=== PATIENT | female | born 1995 | race African-American/Black ===

== ENCOUNTER 2018-12-30 17:49 | Inpatient (IN) ==
[2018-12-30 18:34] LABS: Appearance Urine Clear (Clear); Bilirubin Urine Negative (Negative); Color Urine Yellow; Glucose Urine UA Negative (Negative); Ketones Urine Negative (Negative); Leukocyte Esterase Urine Negative (Negative); Nitrite Urine Negative (Negative); Protein Urine Negative (Negative); Specific Gravity Urine 1.023 (1.000-1.030); Urobilinogen Urine Negative (Negative); pH Urine 5.5 (4.5-7.5)
[2018-12-30 18:40] LABS: Basophils # (auto) 0.04 K/uL (0-0.2); Basophils % (auto) 0.5 %; Eosinophils # (auto) 0.08 K/uL (0-0.5); Hematocrit (blood only) 40.4 % (37-47); Hemoglobin 14.1 g/dL (12.0-16.0); Lymphocytes # (auto) 2.65 K/uL (1.2-3.4); Lymphocytes % (auto) 32.4 %; Mean Corpuscular Hgb Conc 34.9 g/dL (32-36); Mean Platelet Volume 9.1 fL (7.4-10.4); Monocytes # (auto) 0.52 K/uL (0.11-0.59); Monocytes % (auto) 6.4 %; Neutrophils # (auto) 4.89 K/uL (1.4-6.5); Neutrophils % (auto) 59.7 %; Platelet Count 284 K/uL (130-400); RDW Coefficient of Variation 12.7 % (11.5-14.5); RDW Standard Deviation 41.2 fL (36.4-46.3); Red Blood Count 4.54 M/uL (4.2-5.4); White Blood Count 8.18 K/uL (4.8-10.8)
[2018-12-30 19:03] LABS: BUN Creatinine Ratio 8.8 (10-20); Bilirubin,Total 0.4 mg/dl (0.2-1); Calcium 8.7 mg/dl (8.5-10.1); Creatinine Clr Calc Pharmacy 93.1 ml/min; Est GFR (African American) 116.8; Est GFR (Non-African American) 100.8; Globulin 3.9 gm/dl (2.5-4.0); Potassium 3.5 mmol/L (3.5-5.1); Total Protein 7.9 gm/dl (6.4-8.2)
[2018-12-30 19:05] LABS: Acetaminophen < 2 ug/ml (10-30); Salicylate < 1.7 mg/dl (2.8-20)
[2018-12-30 19:22] LABS: Amphetamines+Metham, Urine Neg (Neg); Barbiturates, Urine Neg (Neg); Benzodiazepine, Urine Neg (Neg); Cocaine, Urine Neg (Neg); MDMA (Ecstacy), Urine Neg (Neg); Methadone, Urine Neg (Neg); Opiate, Urine Neg (Neg); Phencyclidine, Urine Neg (Neg)
[2018-12-30 19:47] LABS: Pregnancy Test, Urine Negative (Negative)
--- NOTE | 2018-12-30 21:10 | Emergency Department Note ---
Entered by Letitia Cisneros acting as a scribe for Stevie Rhoades DO History of Present Illness General Chief complaint: Mental Health Evaluation Stated complaint: SAD Source: patient History of Present Illness Onset (ago): hour(s) (today) Location: head, upper extremity and lower extremity Pain Consistency: + other (suddenly) Quality: + other (depressed, thoughts of wanting to kill herself) Associated symptoms: + other (Positive thoughts of SI (overdosing on omeprazole or cutting her wristis). Negative hearing any voices or seeing anything that is not there) The patient is a 23 year old female who presents to the Emergency Room for a mental health evaluation. She states she has a hx of depression and anxiety. Today, she notes she tried doing the therapies her counselor had told her about however, they did not work and she states she wanted to kill herself. She reports she had her omeprazole pills in her hand and thought of overdosing on them but did not take them. She states she also had a razor nearby and she thought about cutting her wrists. Pt denies hearing any voices or seeing anything that is not there. Her LNMP was last month. Home Medications Home Medications Medication Instructions Recorded Confirmed Type No Known Home Medications 12/30/18 12/30/18 History Allergies Allergy/AdvReac Type Severity Reaction Status Date / Time cefprozil [From Cefzil] Allergy Rash Verified 12/30/18 18:19 fruit Allergy Hives Uncoded 12/30/18 18:19 Past Med/Surg History Medical History Anxiety (Chronic) Depression (Chronic) Family History Other Family history non-contributory Social History current occupational status: student Feels Safe at Home: Yes Smoking Status: Never smoker Beliefs That Will Affect Care: None Preferred Language: Citizen Of [place] Communication Ability: Effective Review of Systems See HPI for pertinent positives & negatives. and A total of 10 systems reviewed and were otherwise negative Physical Exam Vital Signs Vital Signs - 24 hr 12/30/18 18:00 12/30/18 19:49 12/30/18 21:46 Temperature 37.2 C Temperature Source Oral Sepsis Recent Fever Within 48 Hours No Sepsis New/Unexplained Change in Mental Status No Sepsis Action Taken by Nursing No Action Required Pulse Rate 86 Pulse Rate [Right Finger] 57 L 60 Pulse Rhythm Regular Pulse Rhythm [Right Finger] Regular Regular Pulse Strength Normal Pulse Strength [Right Finger] Normal Normal Respiratory Rate 18 18 18 Respiratory Effort / Characteristics Non-Labored Non-Labored Spontaneous Non-Labored Spontaneous Respiratory Depth Normal Normal Normal Respiratory Pattern Regular Regular Regular Blood Pressure 115/72 Blood Pressure [Right Arm] 110/64 108/65 Blood Pressure Mean 86 Blood Pressure Mean [Right Arm] 79 79 Blood Pressure Position Lying Blood Pressure Position [Right Arm] Lying Lying Pulse Oximetry 95 100 100 Oxygen Delivery Method Room Air Room Air Room Air 12/30/18 21:48 12/30/18 22:25 12/30/18 22:37 Temperature 36.5 C Temperature Source Oral Sepsis Recent Fever Within 48 Hours Sepsis New/Unexplained Change in Mental Status Sepsis Action Taken by Nursing Pulse Rate Pulse Rate [Right Finger] 62 Pulse Rhythm Pulse Rhythm [Right Finger] Regular Pulse Strength Pulse Strength [Right Finger] Normal Respiratory Rate 18 Respiratory Effort / Characteristics Non-Labored Spontaneous Non-Labored Respiratory Depth Normal Normal Respiratory Pattern Regular Regular Blood Pressure Blood Pressure [Right Arm] 108/74 Blood Pressure Mean Blood Pressure Mean [Right Arm] 85 Blood Pressure Position Blood Pressure Position [Right Arm] Standing Pulse Oximetry 98 Oxygen Delivery Method Room Air Room Air GENERAL: Sitting up in bed, alert, well appearing, well nourished, no distress, non-toxic EYE EXAM: normal conjunctiva. OROPHARYNX: no exudate, no erythema, lips, buccal mucosa, and tongue normal and mucous membranes are moist NECK: supple, no nuchal rigidity, no adenopathy, non-tender LUNGS: Clear to auscultation. Normal chest wall mechanics HEART: no murmurs, S1 normal and S2 normal ABDOMEN: abdomen soft, non-tender, normo-active bowel, sounds, no masses, no rebound or guarding. BACK: Back is symmetrical on inspection and there is no deformity, no midline tenderness, no CVA tenderness. SKIN: no rashes and no bruising UPPER EXTREMITIES: upper extremities are grossly normal. LOWER EXTREMITIES: No pitting edema. NEURO EXAM: Normal sensorium, cranial nerves II-XII grossly intact, normal speech, no gross weakness of arms, no gross weakness of legs. PSYCH: Admits to suicidal thoughts by overdosing or cutting her wrists. Course ED COURSE: Vital signs were reviewed and showed normotensive The patients medical record was reviewed The above diagnostic studies were performed and reviewed. ED treatments and interventions as stated above. 1756: The patient was evaluated in room A8. A complete history and physical examination was performed. 2109: I reviewed the patient's case with [facility]. They will evaluate the patient for further management. 2114: Upon reevaluation, the patient is feeling slightly better. I discussed my findings with the patient and she understands and agrees with the treatment plan. Based on the patients age, coexisting illnesses, exam and lab findings the decision to treat as an inpatient was made. The patient remained stable while under my care. The patient will be evaluated for further management. Consultations Consultation #1: I reviewed the patient's case with [facility]. They will evaluate the patient for further management. Time: 21:10 Medical Decision Making Differential Diagnosis Differential diagnoses considered include mood disorder, infection, hypoglycemia , electrolyte abnormalities, cardiac sources, intracerebral event, toxicologic, neurologic, as well as others. Medical Records Attestation: I reviewed the patient's medical records. Home Medications Current Medication List: was personally reviewed by me Laboratory Data Attestation: I reviewed the patient's lab results. Result diagrams: 12/30/18 18:22 12/30/18 18:22 Lab Results 12/30/18 12/30/18 12/30/18 Range/Units 18:08 18:08 18:08 WBC (4.8-10.8) K/uL RBC (4.2-5.4) M/uL Hgb (12.0-16.0) g/dL Hct (37-47) % MCV (80-100) fL MCH (25-34) pg MCHC (32-36) g/dL RDW Std Deviation (36.4-46.3) fL RDW Coeff of Griselda (11.5-14.5) % Plt Count (130-400) K/uL MPV (7.4-10.4) fL Immature Gran % (Auto) % Neut % (Auto) % Lymph % (Auto) % Luna % (Auto) % Eos % (Auto) % Baso % (Auto) % Immature Gran # (Auto) (0.00-0.02) K/uL Neut # (Auto) (1.4-6.5) K/uL Lymph # (Auto) (1.2-3.4) K/uL Luna # (Auto) (0.11-0.59) K/uL Eos # (Auto) (0-0.5) K/uL Baso # (Auto) (0-0.2) K/uL Sodium (136-145) mmol/L Potassium (3.5-5.1) mmol/L Chloride (98-107) mmol/L Carbon Dioxide (21-32) mmol/L Anion Gap (3-11) BUN (7-18) mg/dl Creatinine (0.6-1.2) mg/dl Est Cr Clr Drug Dosing ml/min Est GFR ( Amer) Est GFR (Non-Af Amer) BUN/Creatinine Ratio (10-20) Glucose (70-99) mg/dl Calcium (8.5-10.1) mg/dl Total Bilirubin (0.2-1) mg/dl AST (15-37) U/L ALT (12-78) U/L Alkaline Phosphatase (45-117) U/L Total Protein (6.4-8.2) gm/dl Albumin (3.4-5.0) gm/dl Globulin (2.5-4.0) gm/dl Albumin/Globulin Ratio (0.9-2) TSH (0.300-4.500) uIu/ml Urine Color Yellow Urine Appearance Clear (Clear) Urine pH 5.5 (4.5-7.5) Ur Specific [place] 1.023 (1.000-1.030) Urine Protein Negative (Negative) Urine Glucose (UA) Negative (Negative) Urine Ketones Negative (Negative) Urine Blood Negative (Negative) Urine Nitrite Negative (Negative) Urine Bilirubin Negative (Negative) Urine Urobilinogen Negative (Negative) Ur Leukocyte Esterase Negative (Negative) Urine Test Negative (Negative) Salicylates (2.8-20) mg/dl Urine Opiates Screen Neg (Neg) Ur Methadone, Qual Neg (Neg) Acetaminophen (10-30) ug/ml Urine Barbiturates Neg (Neg) Ur Phencyclidine (PCP) Neg (Neg) U Amphetamin/Meth Scrn Neg (Neg) MDMA (Ecstasy) Screen Neg (Neg) U Benzodiazepines Scrn Neg (Neg) Ur Cocaine Metabolite Neg (Neg) U Marijuana (THC) Screen Neg (Neg) Ethyl Alcohol mg/dL (0-3) mg/dl 12/30/18 12/30/18 12/30/18 Range/Units 18:22 18:22 18:22 WBC 8.18 (4.8-10.8) K/uL RBC 4.54 (4.2-5.4) M/uL Hgb 14.1 (12.0-16.0) g/dL Hct 40.4 (37-47) % MCV 89.0 (80-100) fL MCH 31.1 (25-34) pg MCHC 34.9 (32-36) g/dL RDW Std Deviation 41.2 (36.4-46.3) fL RDW Coeff of Griselda 12.7 (11.5-14.5) % Plt Count 284 (130-400) K/uL MPV 9.1 (7.4-10.4) fL Immature Gran % (Auto) 0.0 % Neut % (Auto) 59.7 % Lymph % (Auto) 32.4 % Luna % (Auto) 6.4 % Eos % (Auto) 1.0 % Baso % (Auto) 0.5 % Immature Gran # (Auto) 0.00 (0.00-0.02) K/uL Neut # (Auto) 4.89 (1.4-6.5) K/uL Lymph # (Auto) 2.65 (1.2-3.4) K/uL Luna # (Auto) 0.52 (0.11-0.59) K/uL Eos # (Auto) 0.08 (0-0.5) K/uL Baso # (Auto) 0.04 (0-0.2) K/uL Sodium 138 (136-145) mmol/L Potassium 3.5 (3.5-5.1) mmol/L Chloride 107 (98-107) mmol/L Carbon Dioxide 24 (21-32) mmol/L Anion Gap 7.0 (3-11) BUN 7 (7-18) mg/dl Creatinine 0.83 (0.6-1.2) mg/dl Est Cr Clr Drug Dosing 93.1 ml/min Est GFR ( Amer) 116.8 Est GFR (Non-Af Amer) 100.8 BUN/Creatinine Ratio 8.8 L (10-20) Glucose 101 H (70-99) mg/dl Calcium 8.7 (8.5-10.1) mg/dl Total Bilirubin 0.4 (0.2-1) mg/dl AST 15 (15-37) U/L ALT 19 (12-78) U/L Alkaline Phosphatase 80 (45-117) U/L Total Protein 7.9 (6.4-8.2) gm/dl Albumin 4.0 (3.4-5.0) gm/dl Globulin 3.9 (2.5-4.0) gm/dl Albumin/Globulin Ratio 1.0 (0.9-2) TSH 0.570 (0.300-4.500) uIu/ml Urine Color Urine Appearance (Clear) Urine pH (4.5-7.5) Ur Specific [place] (1.000-1.030) Urine Protein (Negative) Urine Glucose (UA) (Negative) Urine Ketones (Negative) Urine Blood (Negative) Urine Nitrite (Negative) Urine Bilirubin (Negative) Urine Urobilinogen (Negative) Ur Leukocyte Esterase (Negative) Urine Test (Negative) Salicylates < 1.7 L (2.8-20) mg/dl Urine Opiates Screen (Neg) Ur Methadone, Qual (Neg) Acetaminophen < 2 L (10-30) ug/ml Urine Barbiturates (Neg) Ur Phencyclidine (PCP) (Neg) U Amphetamin/Meth Scrn (Neg) MDMA (Ecstasy) Screen (Neg) U Benzodiazepines Scrn (Neg) Ur Cocaine Metabolite (Neg) U Marijuana (THC) Screen (Neg) Ethyl Alcohol mg/dL (0-3) mg/dl 12/30/18 Range/Units 18:22 WBC (4.8-10.8) K/uL RBC (4.2-5.4) M/uL Hgb (12.0-16.0) g/dL Hct (37-47) % MCV (80-100) fL MCH (25-34) pg MCHC (32-36) g/dL RDW Std Deviation (36.4-46.3) fL RDW Coeff of Griselda (11.5-14.5) % Plt Count (130-400) K/uL MPV (7.4-10.4) fL Immature Gran % (Auto) % Neut % (Auto) % Lymph % (Auto) % Luna % (Auto) % Eos % (Auto) % Baso % (Auto) % Immature Gran # (Auto) (0.00-0.02) K/uL Neut # (Auto) (1.4-6.5) K/uL Lymph # (Auto) (1.2-3.4) K/uL Luna # (Auto) (0.11-0.59) K/uL Eos # (Auto) (0-0.5) K/uL Baso # (Auto) (0-0.2) K/uL Sodium (136-145) mmol/L Potassium (3.5-5.1) mmol/L Chloride (98-107) mmol/L Carbon Dioxide (21-32) mmol/L Anion Gap (3-11) BUN (7-18) mg/dl Creatinine (0.6-1.2) mg/dl Est Cr Clr Drug Dosing ml/min Est GFR ( Amer) Est GFR (Non-Af Amer) BUN/Creatinine Ratio (10-20) Glucose (70-99) mg/dl Calcium (8.5-10.1) mg/dl Total Bilirubin (0.2-1) mg/dl AST (15-37) U/L ALT (12-78) U/L Alkaline Phosphatase (45-117) U/L Total Protein (6.4-8.2) gm/dl Albumin (3.4-5.0) gm/dl Globulin (2.5-4.0) gm/dl Albumin/Globulin Ratio (0.9-2) TSH (0.300-4.500) uIu/ml Urine Color Urine Appearance (Clear) Urine pH (4.5-7.5) Ur Specific [place] (1.000-1.030) Urine Protein (Negative) Urine Glucose (UA) (Negative) Urine Ketones (Negative) Urine Blood (Negative) Urine Nitrite (Negative) Urine Bilirubin (Negative) Urine Urobilinogen (Negative) Ur Leukocyte Esterase (Negative) Urine Test (Negative) Salicylates (2.8-20) mg/dl Urine Opiates Screen (Neg) Ur Methadone, Qual (Neg) Acetaminophen (10-30) ug/ml Urine Barbiturates (Neg) Ur Phencyclidine (PCP) (Neg) U Amphetamin/Meth Scrn (Neg) MDMA (Ecstasy) Screen (Neg) U Benzodiazepines Scrn (Neg) Ur Cocaine Metabolite (Neg) U Marijuana (THC) Screen (Neg) Ethyl Alcohol mg/dL < 3.0 (0-3) mg/dl Blood Pressure Blood Pressure Findings: Normal blood pressure Blood Pressure Disposition: did not require urgent referral MDM Narrative Patient is a 23-year-old female who presents the ER for thoughts of self-harm. She notes that she has been depressed recently and this has been worsening. She takes no medications. She notes that tonight she was thinking about overdosing on medications and cutting her wrist. Patient has no physical complaints at this time. Labs were obtained and showed no significant leukocytosis or anemia. BMP along with LFTs bilirubin and TSH was unremarkable. Urine was negative. Salicylates and acetaminophen were negative. Alcohol was negative. Patient was updated bedside. Patient was accepted to [facility] [address] and admitted on 201. Impression & Plan Mood disorder, Suicidal thoughts Discharge Plan Visit Data *Final* Discharge Date/Time: 12/30/18 21:48 Chief Complaint: Mental Health Evaluation Stated Complaint: SAD ED Provider: Stevie Rhoades Discharge Problem: Mood disorder, Suicidal thoughts Patient Disposition: Admitted As Inpatient Discharge Instructions Interventions: ED Discharge Assessment Last Done: 12/30/18 21:48 The scribe's documentation has been prepared under my direction and personally reviewed by me in its entirety. I confirm that the note above accurately reflects all work, treatment, procedures, and medical decision making performed by me.
[2018-12-30] MEDS ORDERED: MAGNESIUM HYDROXIDE SUSP 30 ML UDC PO PRN (22:24)
[2018-12-30] MEDS ORDERED: ACETAMINOPHEN 325 MG TAB PO PRN (22:24)
[2018-12-30] MEDS ORDERED: BISMUTH SUBSALICYLATE PER ML OMNICELL CHARGE PO PRN (22:24)
[2018-12-30] MEDS ORDERED: ALUMINUM/MAGNESIUM SUSP 30 ML UDC PO PRN (22:24)
[2018-12-30] MEDS ORDERED: SODIUM CHLORIDE 0.65% NA SOLN 45 ML (OCEAN) PRN (22:24)
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
[2018-12-31] MEDS ORDERED: SERTRALINE HCL 50 MG TABLET PO ONE (12:00)
[2019-01-01] MEDS: SERTRALINE HCL 50 MG TABLET PO SCH (09:03)
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
[2019-01-02] MEDS: SERTRALINE HCL 50 MG TABLET PO SCH (07:49)
--- NOTE | 2019-01-02 09:05 | Psychiatric Progress Note ---
Date of Service January 02, 2019 Impression / Recommendations Impression Tolerating zoloft and so will increase to 100 mg to target mood and anxiety. Will work toward firming up aftercare plans and contact Office of Student Care and Advocacy. If progress continues, could consider discharge as soon as tomorrow. (1) Depression: 12/31 - Start Zoloft 25 mg today increasing to 50 mg tomorrow - Q 15 min checks for safety - Encourage participation in group and individual counseling - Assist the patient to explore healthy coping strategies - Coordinate with therapist at [facility] - The patient will need a psychiatric prescriber - FAmily meeting - Contact Office of Student Affairs as needed 01/01 -Continue sertraline and increase to 50 mg daily. -Family meeting with mother -Refer for outpatient psychiatry and therapy. 01/02 - Increase Zoloft to 100 mg qAM - Confirm aftercare Inventory Assets Strengths: Desire to do well in life, willingness to engage in treatment, supportive mother Needs: Healthy coping strategies, and outpatient care Risk Factors Assessment Male: No : No Do You Have Access To A Gun?: No Health Problems: No Mental Health Diagnoses: No Substance Use Disorders: No Previous Attempt: No Family History of Suicide: No Previous Psychiatric Hospitalization: No Hopelessness: Yes Smoker: No Protective Factors Assessment : No Responsible for Young Children: No Employed: Yes Stable Relationships: No Supportive Family: No Interval History Identifying Information INDRA SIERRA is 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 She is admitted voluntarily. Chief Complaint "I'm good today.". Review of Systems Sleep Information Total Hours of Sleep: 6.5 Sleep Comments: pt on q-15 minute checks Meal Information Percent Meal Consumed - Breakfast: 100 Percent Meal Consumed - Lunch: 70 Percent Meal Consumed - Dinner: 10 Subjective Subjective Patient was seen & assessed and interval progress reviewed with Treatment Team. Today the patient says that she is feeling better. She says that she is "learning to let go" of toxic issues and people in her life. Last evening she called her ex BF and told him she no longer wanted even to have phone conversation which he was OK with. She also plans to block her father's number from her phone so that she has no contact with him since its clear to her that he doesn't care about her. She has many friends and supports that she considers to be healthy, including her roommates and her sorority sisters. She denies any further SI saying "I can't believe I thought that" and knows now that she would never want to end her life. She denies side effects to medications. Anxiety remains and today is trying to put in place better sleep hygiene, with same wake up and bed times. Physical Exam Psychiatric Orientation: alert and cooperative Apperance: appropriately dressed and appropriately groomed Eye Contact: good eye contact Motor Behavior: steady gait and station and no abnormal motor movements Speech: normal rate/rhythm/volume of speech Affect: + anxious affect Mood: + anxious mood Thought Process: goal directed thought process Thought Content: reality based without delusions Suicidal Thoughts: denies suicidal thoughts Homicidal Thoughts: denies homicidal thoughts Hallucinations: no auditory hallucinations and no visual hallucinations Cognition: recent memory grossly intact, remote memory grossly intact, attention grossly intact and language grossly intact Estimated Intelligence: average estimated intelligence Insight: + fair insight Judgement: + fair judgement Vital Signs (Past 24 Hours) Last Vital Signs Temp 36.6 C 01/02/19 06:33 Pulse 78 01/02/19 06:34 Resp 16 01/02/19 06:33 BP 104/64 01/02/19 06:34 Pulse Ox 98 12/30/18 22:37 Results & Data Current Inpatient Medications Current Inpatient Medications: Current Inpatient Medications Acetaminophen (Tylenol) 650 mg PO Q4H PRN PRN Reason: Headache or Minor Fever Stop: 01/29/19 22:23 Al Hydrox/Mg Hydrox/Simethicone (Maalox) 30 ml PO Q4H PRN PRN Reason: GI Upset Stop: 01/29/19 22:23 Bismuth Subsalicylate (Kaopectate) 15 ml PO PRN PRN PRN Reason: Loose Stool Stop: 01/29/19 22:23 Hydroxyzine HCl (Vistaril) 25 mg PO Q4H PRN PRN Reason: Anxiety Stop: 01/29/19 22:23 Magnesium Hydroxide (Milk Of Magnesia) 30 ml PO DAILY PRN PRN Reason: Heartburn Stop: 01/29/19 22:23 Sertraline HCl (Zoloft) 50 mg PO QAM SAVANNAH Stop: 01/31/19 08:59 Last Admin: 01/02/19 07:49 Dose: 50 mg Sodium Chloride ([place] Nasal) 1 - 2 sprays NA PRN PRN PRN Reason: Nasal Dryness/Congestion Stop: 01/29/19 22:23 Post Discharge Appointments Primary Care Physician Name Of Family Doctor: CURTIS Benitez Therapist Name of Therapist: MARQUIS farrar looking at [facility]) Date of Therapist Appointment: 12/31/18 Two Needle Machine Operator Name of Two Needle Machine Operator: MARQUIS Blue looking for therapy CPT Code CPT Code 47539
[2019-01-02] MEDS ORDERED: SERTRALINE HCL 50 MG TABLET PO ONE (09:20)
[2019-01-03] MEDS ORDERED: SERTRALINE HCL 50 MG TABLET PO SCH (09:00)
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
== END 2019-01-03 11:40 | disposition home or self-care (01) | DRG 881 ==
LOC: ED 17:49 → 3S 21:48